=== PATIENT | female | born 1955 | race African-American/Black ===

== ENCOUNTER 2017-03-02 03:35 | Emergency (ER) | payer BC ==
[~2017-03-02] VITALS: Ht 167.6 cm; Wt 72.6 kg
[2017-03-02 03:40] VITALS: BP 139/89
[2017-03-02] MEDS ORDERED: diphenhdrAMINE HCL 50 MG/1 ML VL IV ONE (04:00)
[2017-03-02] MEDS ORDERED: methylPREDNISolone SOD SUCC 125 MG/2 ML VL IV ONE (04:00)
[2017-03-02] MEDS ORDERED: SODIUM CHLORIDE 0.9% 1,000 ML IV ONE (05:00)
[2017-03-02] MEDS ORDERED: cefTRIAXone 1GM/50ML D5W 50 ML IV ONE (05:00)
[2017-03-02] MEDS ORDERED: EPINEPHrine HCL 1 MG/1 ML AMP SC ONE (05:00)
== END 2017-03-02 05:32 | disposition home or self-care (01) ==
LOC: ER 03:36
DX: L25.9 Unspecified contact dermatitis, unspecified cause (principal); L73.9 Follicular disorder, unspecified; T45.1X5A Adverse effect of antineoplastic and immunosuppressive drugs, initial encounter; Z90.710 Acquired absence of both cervix and uterus; F17.210 Nicotine dependence, cigarettes, uncomplicated; Y92.89 Other specified places as the place of occurrence of the external cause
CPT/HCPCS: 96365; 96372; 96375; 99284; J0171; J0696; J1200; J2930; J7030

== ENCOUNTER 2017-03-16 20:02 | Emergency (ER) | payer BC ==
[~2017-03-16] VITALS: Ht 167.6 cm; Wt 72.6 kg
[2017-03-16 20:11] VITALS: BP 154/96
[2017-03-16] MEDS ORDERED: methylPREDNISolone SOD SUCC 125 MG/2 ML VL ONE (23:57)
[2017-03-17] MEDS ORDERED: methylPREDNISolone SOD SUCC 125 MG/2 ML VL IM ONE ×2
== END 2017-03-17 00:11 | disposition home or self-care (01) ==
LOC: ER 20:05
DX: L25.9 Unspecified contact dermatitis, unspecified cause (principal); F17.210 Nicotine dependence, cigarettes, uncomplicated; Z90.710 Acquired absence of both cervix and uterus; Z90.89 Acquired absence of other organs
CPT/HCPCS: 96372; 99283; J2930

== ENCOUNTER 2024-11-23 04:48 | Emergency (ER) | payer BC ==
[~2024-11-23] VITALS: Ht 167.6 cm; Wt 77.2 kg
--- NOTE | 2024-11-23 07:08 | ED.PDOC ---
Musculoskeletal HPI Comments A 69-year-old female with a past medical history of hyperlipemia, sciatica presents to the emergency department with a chief complaint of RT knee pain s/p fall onset 1 day. Patient states she was walking to carpool van when she tripped, fell, landing on RT side. She is currently experiencing RT knee pain, pain is exacerbated with movement, rates pain 5/10. Last night around 20:00, patient took Ibuprofen 200 mg. No other symptoms or modifying factors present at this time. Denies skin color changes around the knee Denies masses around the knee Denies popping/locking/giving out of the knee Denies fever chills night sweats nausea vomiting Chief Complaint: Fall Injury Time Seen by MD: 06:45 Primary Care Provider: ALICIA Gonzalez Notes: Medications, Allergies Allergies: Coded Allergies: NO KNOWN ALLERGIES (Unverified , 02/19/14) Information Source: Patient Mode of Arrival: Ambulatory Location: Right Extremity Location: Knee Timing: Days Prehospital treatment: Pain Meds (Ibuprofen 200 mg) Severity: Moderate Able to Move Extremity: Yes Bear Weight: Limited Pain: Moderate Mechanism: Spontaneous Circumstances: Fall Onset of Symptoms: After Trauma Symptoms: Pain DVT Risk Factors: NONE Associated signs and symptoms: Knee pain Past Medical History PAST MEDICAL HISTORY: High Lipids Past Medical History (Other): sciatica Surgical History: Appendectomy, , Hysterectomy, Tonsillectomy HOSE TENDER History: No Pertinent HOSE TENDER History Family History Family History: Unknown Social History Smoker: Quit Greater Than 1 Year, Cigarettes Alcohol: Occasionally Drugs: Marijuana Lives In: Home All Other Systems: Reviewed and Negative (as per HPI) Physical Exam General Appearance: No Apparent Distress, Normal HEENT: Normal ENT Inspection, Pharynx Normal, TMs Normal Neck: Full Range of Motion, Non-Tender, Normal, Normal Inspection Respiratory: Chest Non-Tender, Lungs Clear, No Accessory Muscle Use, No Respiratory Distress, Normal Breath Sounds Cardiovascular: No Edema, No JVD, No Murmur, No Gallop, Normal Peripheral Pulses, Regular Rate/Rhythm Breast Exam: Deferred Gastrointestinal: No Organomegaly, Non Tender, No Pulsatile Mass, Normal Bowel Sounds, Soft Genitalia: Deferred Pelvic: Deferred Rectal: Deferred Extremities: No calf tenderness, Normal capillary refill, No pedal edema Musculoskeletal : Location: Right Extremity Location: Back (paraspinal TTP, no midline tenderness), Knee (no gross abnormality to patella on insepcton, no echymosis, swelling or open wounds, subjective pain with flexion and extension of knee. No signs of crepitus, no joint instability, valgus and vargus stress test negative. anterior/psoterior drawer test negative. No erythema, STS or warmth to palpation below knee, no abnormailty compared to unaffected extremity. ) Apperance: Normal Neurologic: Alert, mingler operator II-XII nml as Tested, No Motor Deficits, Normal Affect, Normal Mood, No Sensory Deficits Cerebellar Function: Normal Reflexes: Normal Skin: Dry, Normal Color, Warm Lymphatic: No Adenopathy Was a procedure done? Was a procedure done?: No X-Ray, Labs, Meds, VS Vital Signs Date Time Temp Pulse Resp B/P (MAP) Pulse Ox O2 Delivery O2 Flow Rate FiO2 11/23/24 07:51 98.1 60 16 165/99 (121) 100 98.1 11/23/24 07:51 60 16 100 Room Air 11/23/24 05:37 98.3 65 16 184/86 (118) 100 98.3 X-Ray, Labs, Meds, VS Comment A 69-year-old female with a past medical history of hyperlipemia, sciatica pr esents to the emergency department with a chief complaint of RT knee pain s/p fall onset 1 day. Patient arrives alert and oriented, ABC's intact, afebrile, vital signs stable, saturating well in room air Diagnostic imaging ordered by me and results interpreted by radiology : XY R KNEE 3V Patient was given:_. Tolerated medications with no adverse reaction. Additional MDM Review of External, Non-ED records: External records reviewed. Discussion with independent historian (EMS, family) history obtained from the patient/parents (if applicable) at bedside Chronic conditions affecting care: HLD, sciatica Social determinants of health affecting care: Marijuana, ETOH occacionally Consideration of admission (observation or admission): I considered escalation of care to admission for this patient, however given the reassuring workup, the patient is safe for outpatient management. Time of 1ST Reevaluation: 07:15 Reevaluation 1ST: Improved Patient Education/Counseling: Diagnosis, Treatment Family Education/Counseling: No Family Present Departure 1 Departure Time of Disposition: 07:57 Impression: Primary Impression: Knee pain Qualified Codes: M25.561 - Pain in right knee Additional Impression: Fall Qualified Codes: W19.XXXA - Unspecified fall, initial encounter Disposition: HOME / SELF CARE / HOMELESS Condition: Stable e-Prescriptions Celecoxib (CeleBREX CAPSULE) 100 Mg Cp 1 CAP PO BID for 10 Days, #20 CAP 0 Refills Prov: RHIANNA SPANN NP 11/23/24 Diclofenac Sodium (Topical) (Voltaren Arthritis Pain) 1 % Gel 2 GRAMS EX Q8HP PRN for 30 Days, #60 GRAMS 0 Refills Prov: RHIANNA SPANN MELTER LOADER 11/23/24 Critical Care Note Critical Care Time?: No Stability Stability form required: No Heart Score Heart Score: Heart Score Response (Comments) Value History N/A 0 EKG N/A 0 Age N/A 0 Risk Factors N/A 0 Troponin N/A 0 Total 0 I personally scribed for RHIANNA SPANN NP ([email or web address]) on 11/23/24 at 07:08. Electronically submitted by Denice Cid ([email or web address]). I personally scribed for RHIANNA SPANN NP (TANIA) on 11/23/24 at 07:17. Electronically submitted by Denice Cid ([email or web address]). I personally scribed for RHIANNA SPANN NP ([email or web address]) on 11/23/24 at 07:29. Electronically submitted by Denice Cid ([email or web address]). RHIANNA SPANN NP Nov 23, 2024 07:08
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
[2024-11-23 07:51] VITALS: BP 165/99; PULSE 60; RESP 16; TEMP 98.1; O2SAT 100
[2024-11-23] MEDS ORDERED: DICL1GEL59 EX (07:59)
[2024-11-23] MEDS ORDERED: CEL100T PO (07:59)
== END 2024-11-23 08:08 | disposition home or self-care (01) ==
LOC: ER 04:48
DX: M25.561 Pain in right knee (principal); E78.5 Hyperlipidemia, unspecified; F12.90 Cannabis use, unspecified, uncomplicated; Z90.710 Acquired absence of both cervix and uterus; Z90.49 Acquired absence of other specified parts of digestive tract; W01.0XXA Fall on same level from slipping, tripping and stumbling without subsequent striking against object, initial encounter; Y93.01 Activity, walking, marching and hiking; Y92.89 Other specified places as the place of occurrence of the external cause; Y99.8 Other external cause status
CPT/HCPCS: 73562